=== PATIENT | male | born 1935 | race Caucasian/White ===

== ENCOUNTER 2024-05-30 17:42 | Emergency (ER) | payer MEDICARE, SELFPAY ==
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
[2024-05-30 17:45] VITALS: BP 139/69; PULSE 66; RESP 12; TEMP 36.5; O2SAT 98
--- NOTE | 2024-05-30 19:08 | ED_ITS ---
HPI - Fall General Chief Complaint: Fall Stated Complaint: fall from bed, head injury Time Seen by Provider: 05/30/24 18:16 Source: patient and EMS Mode of arrival: EMS Limitations: no limitations History of Present Illness HPI Narrative: This is an 88-year-old male, with history of dementia, brought in by EMS from [facility] after a [facility]. The patient states he accidentally rolled out of bed, landing on the ground and striking his head. He does not take blood thinners. He denies loss of consciousness, weakness/numbness, change /loss of vision or hearing and has no significant pain. He has no other complaints at this time. Related Data Allergies Allergy/AdvReac Type Severity Reaction Status Date / Time cephalexin Allergy Unknown Verified 05/30/24 17:54 Review of Systems Review of Systems: All systems reviewed & are unremarkable except as noted in HPI and below PMFSH Past Medical History Medical History Dementia Surgical History Surgical History No significant past surgical history Social History Social History Smoking status: Never smoker Alcohol intake: never Substance use: never Exam Narrative: GENERAL: Well-developed, well-nourished, and in no acute distress. HEAD: Normocephalic, atraumatic. EYES: PERRLA and EOMI. ENT: Nares clear, no rhinorrhea or epistaxis. Mucous membranes moist. Oropharynx without tonsillar hypertrophy exudate or other lesions. NECK: Supple. No midline spine tenderness to palpation, no step-off or crepitus CHEST: Clear to auscultation. No respiratory distress. No wheezes rales or rhonchi HEART: Regular rate and rhythm. No murmur heard. Normal peripheral pulses. ABDOMEN: Soft, nontender, nondistended, normal active bowel sounds. BACk: No midline spine tenderness to palpation, no step-off or crepitus EXTREMITIES: Normal range of motion. No edema. SKIN: Warm, dry, no rash. NEURO: Alert and oriented x1. Strength 5/5 in all extremities, sensation intact bilaterally, no noted ataxia, cranial nerves 2-12 intact PSYCH: Normal mood and affect. Course Course Emergency Course: 19:05 - CT head negative for skull fracture or intracranial hemorrhage. CT cervical spine negative for fracture or dislocation. Will discharge with recommendation for primary care follow-up. I discussed the findings and recommendations with the patient and his prison staff. Discussed return and emergency precautions including signs/symptoms of intracranial hemorrhage and focal neural deficit. The patient and staff voiced understanding and agreement with the plan. All questions answered to their satisfaction. Vital Signs Vital signs: Vital Signs Temperature 97.7 F 05/30/24 17:45 Pulse Rate 66 05/30/24 17:45 Respiratory Rate 12 05/30/24 17:45 Blood Pressure 139/69 05/30/24 17:45 Pulse Oximetry 98 05/30/24 17:45 Oxygen Delivery Room Air 05/30/24 17:45 Temperature 97.7 F 05/30/24 17:45 Pulse Rate 69 05/30/24 19:27 Respiratory Rate 16 05/30/24 19:27 Blood Pressure 139/69 05/30/24 17:45 Pulse Oximetry 98 05/30/24 19:27 Oxygen Delivery Room Air 05/30/24 17:45 MDM - Fall MDM Narrative Medical decision making narrative: plan: imaging, reassess Differential Diagnosis Differential diagnosis: Likely concussion without loss of consciousness and other ( skull fracture, intracranial hemorrhage, cervical spine fracture, other) Discharge Plan Discharge Clinical Impression: Concussion Qualifiers: Encounter type: initial encounter Loss of consciousness presence/duration: without LOC Qualified Code(s): S06.0X0A - Concussion without loss of consciousness, initial encounter CHI (closed head injury) Qualifiers: Encounter type: initial encounter Qualified Code(s): S09.90XA - Unspecified injury of head, initial encounter Patient Disposition: [facility]As[facility] Living Condition: Stable Instructions: Antibiotic Form, Concussion (ED) Additional Instructions: You were seen in the emergency department. A CT scan of the head and neck were not concerning for bleeding in the brain, skull fracture or spine fracture. If you develop persistent vomiting, weakness/numbness, change/loss of vision/hearing, or if you have other emergent concerns for life, limb, or eyesight, return to the emergency department. Patient Language: Yakut Follow-up/Referrals: UNKNOWN,DOCTOR [Primary Care Provider] - Time of Disposition: 19:09
[2024-05-30 19:27] VITALS: PULSE 69; RESP 16; O2SAT 98
== END 2024-05-30 20:00 ==
PROVIDERS: Emergency Provider Preventive Medicine Aerospace Medicine
DX: S06.0X0A Concussion without loss of consciousness, initial encounter (principal); F03.90 Unspecified dementia, unspecified severity, without behavioral disturbance, psychotic disturbance, mood disturbance, and anxiety; W06.XXXA Fall from bed, initial encounter
CPT/HCPCS: 70450; 72125; 99284

== ENCOUNTER 2024-08-06 07:23 | Emergency (ER) | payer MEDICARE, SELFPAY ==
[2024-08-06] VITALS (9 sets, daily range): BP systolic 128–167; BP diastolic 70–104; PULSE 55–65; RESP 16–18; TEMP 36.4–37.1; O2SAT 89–98
--- NOTE | ~2024-08-06 | XR_ITS ---
XR shoulder LT min 2V 08/06/2024 09:00 Indication: Left shoulder pain after fall Procedure: 4 views left shoulder Comparison: No prior studies for comparison. 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 No fracture or traumatic malalignment. Ther e is chondrocalcinosis. Impression: 1: No acute fracture. Reviewed, dictated and finalized at location A. Impression: 1: No acute fracture.
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
--- NOTE | ~2024-08-06 | CT_ITS ---
EXAMINATION: CT chest abdomen pelvis w con DATE: 08/06/2024 08:50 INDICATION: Fall with pain and bruising at the posterior left hemithorax. TECHNIQUE: Computed tomography (CT) of the chest, abdomen, and pelvis was performed with 100 mL Omnip aque-350 intravenous contrast. Automated exposure control and iterative reconstruction technique were employed. The dose-length product was 984.58 mGy-cm. COMPARISON: None FINDINGS: CHEST CT: There are fractures of the posterior left eighth-11th ribs with varying degrees of displacement. No p neumothorax. Trace bilateral posterior layering pleural effusions. Groundglass opacities and smooth s eptal line thickening with peripheral and dependent predominance consistent with mild pulmonary edema . Cardiomegaly. Thoracic aorta is normal in caliber with no dissection or acute traumatic aortic inju ry. Calcified right hilar and subcarinal lymph nodes consistent with old granulomatous disease. No pa thologically enlarged thoracic lymphadenopathy. Small sliding-type hiatal hernia. Mild to moderate th oracic spondylosis. ABDOMEN/PELVIS CT: Couple hepatic cysts the largest measuring 2 cm. There is intra and extra hepatic biliary ductal dila tion likely related to prior cholecystectomy with surgical clips the gallbladder fossa. No evident ob structing masses or stones at the distal common bile duct. Duodenal diverticulum measuring 2.7 cm pos terior to the junction of the second and third portions of the duodenum. Spleen, pancreas and bilater al adrenal glands are normal. Large bilateral renal cysts measuring up to 8.3 cm on the right and 5.0 cm on the left. There are few scattered clonic diverticula without adjacent from trace stranding to suggest diverticulitis. The normal appendix and a relatively long segment of ileum extends into a lar ge right inguinal hernia which extends to the base of the scrotum. No bowel obstruction. Multiple bra chytherapy seeds of the prostate. Bladder is normal. No free intraperitoneal gas or fluid. No patholo gically enlarged abdominal or pelvic lymphadenopathy. Mild lower lumbar levocurvature with moderate s pondylosis. Ankylosis anteriorly at the bilateral sacroiliac joints. No pelvic fractures. IMPRESSION: 1. Fractures of the posterior left 8th-11th ribs. No pneumothorax. 2. Likely congestive heart failure with cardiomegaly, mild pulmonary edema and trace bilateral pleura l effusions. 3. Large right inguinal hernia containing the normal appendix and long segment of nonobstructed dista l ileum. 4. Intra and extra hepatic biliary ductal dilation without evident obstructing stone or mass, likely related to prior cholecystectomy. If there is clinical concern for biliary obstruction could consider MRCP for further evaluation. Reviewed, dictated and finalized at location B. IMPRESSION: 1. Fractures of the posterior left 8th-11th ribs. No pneumothorax. 2. Likely congestive heart failure with cardiomegaly, mild pulmonary edema and trace bilateral pleural effusions. 3. Large right inguinal hernia containing the normal appendix and long segment of nonobstructed distal ileum. 4. Intra and extra hepatic biliary ductal dilation without evident obstructing stone or mass, likely related to prior cholecystectomy. If there is clinical co ncern for biliary obstruction could consider MRCP for further evaluation.
--- NOTE | ~2024-08-06 | XR_ITS ---
XR chest 1V 08/06/2024 09:00 Indication: Status post fall. Procedure: AP view of the chest Comparison: No prior studies for comparison. Findings: Patchy mixed interstitial and airspace disease bilaterally, right greater than left. Differ ential diagnosis includes edema and pneumonia. No significant effusion. No pneumothorax. There is ath erosclerosis. Cardiomegaly. Impression: 1: Mixed interstitial and airspace disease bilaterally which may reflect edema or pneumonia. Reviewed, dictated and finalized at location A. Impression: 1: Mixed interstitial and airspace disease bilaterally which may reflect edema or pneumonia.
--- NOTE | 2024-08-06 07:35 | PC.NURSE ---
Notified Daughter Rossy ( Emergency contact) of patient arrival to ER for fall. will update with any changes.
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
[2024-08-06] MEDS: HYDROcodone/acetaminophen (*CRX) 5-325 MG TABLET 1 TAB PO (07:58)
[2024-08-06 08:12] LABS: Basophils Percent Auto 0.5 % (0.2-1.2); Eosinophils Absolute Auto 0.1 K/mm3 (0-0.3); Eosinophils Percent Auto 1.5 % (0-4.4); Hematocrit 33.6 % (42.0-52.0); Hemoglobin 11.2 g/dL (14.0-18.0); Immature Granulocyte Absolute 0.07 K/mm3 (0.00-0.031); Immature Granulocyte Percent A 1.3 % (0-0.5); Lymphocytes Absolute Auto 0.99 K/mm3 (0.9-3.2); Mean Corpuscular HGB Conc 33.3 g/dl (32-36); Mean Corpuscular Hemoglobin 35.9 pg (26-34); Mean Corpuscular Volume 107.7 fl (80-100); Mean Platelet Volume 9.8 fl (7.4-10.4); Monocytes Absolute Auto 0.5 K/mm3 (0.1-0.6); Monocytes Percent Auto 8.4 % (2.6-8.5); Neutrophils Absolute Auto 3.9 K/mm3 (1.3-6.7); Neutrophils Percent Auto 70.3 % (45.5-73.1); Platelet Count Result 152 k/mm3 (150-375); Red Blood Count 3.12 M/mm3 (4.6-6.20); Red Cell Distribution Width 13.6 % (11.5-14.5); White Blood Count 5.5 K/mm3 (4.5-10.0)
[2024-08-06 08:21] LABS: Alanine Aminotransferase 21 U/L (6-50); Albumin Level 3.8 g/dL (3.5-5.1); Alkaline Phosphatase 91 U/L (38-126); Anion Gap 7 mmol/L (4-12); Aspartate Amino Transferase 28 U/L (17-59); Bilirubin,Total 0.6 mg/dL (0.2-1.3); Blood Urea Nitrogen 29 mg/dL (9-20); Calcium 9.3 mg/dL (8.4-10.2); Carbon Dioxide 30 mmol/L (22-30); Chloride 102 mmol/L (98-107); Estimated Glomerular Filt Rate > 60; Glucose 128 mg/dL (65-110); Potassium 4.1 mmol/L (3.4-5.0); Sodium 139 mmol/L (137-145)
[2024-08-06 08:25] LABS: Add Urine Microscopic? YES; Appearance Urine Clear (Clear); Bacteria Urine None Seen /hpf; Bilirubin Urine Negative (Negative); Blood Urine Trace (Negative); Color Urine Yellow (Yellow); Glucose Urine UA Negative (Negative); Ketones Urine Negative (Negative); Leukocyte Esterase Ur 1+ LEU/UL (Negative); Nitrate Urine Negative (Negative); Non Pathogenic Casts 0-2; Protein Urine Negative (Negative); Specific Grav Ur 1.018 (1.001-1.035); Squamous Epithelial Cell Urine None Seen /hpf (Few); Urobilinogen Urine 0.2 mg/dL (<2.0); pH Urine 6.5 (5.0-9.0)
[2024-08-06 08:36] LABS: Macrocytosis 1+ (NORMAL); Platelet Estimate Adequate (Adequate); Schistocytes None Seen
[2024-08-06 08:48] LABS: Influenza A QL RT-PCR Negative (Negative); Influenza B QL RT-PCR Negative (Negative); RSV RNA, RT-PCR Negative (Negative); SARS-CoV-2 RNA PCR Negative (Negative)
[2024-08-06] MEDS: KETOROLAC 15 MG/ML VIAL (*BKC) IV PUSH (10:14)
[2024-08-06] MEDS: LIDOCAINE 5% PATCH 1 PATCH TRANSDERM (10:14)
--- NOTE | 2024-08-06 11:00 | PC.NURSE ---
Spoke with Elsie Kesslertone for report
== END 2024-08-06 10:40 | disposition short-term general hospital (02) ==
PROVIDERS: Emergency Provider Emergency Medicine
DX: S22.42XA Multiple fractures of ribs, left side, initial encounter for closed fracture (principal); Z20.822 Contact with and (suspected) exposure to COVID-19; R82.998 Other abnormal findings in urine; F03.90 Unspecified dementia, unspecified severity, without behavioral disturbance, psychotic disturbance, mood disturbance, and anxiety; K40.90 Unilateral inguinal hernia, without obstruction or gangrene, not specified as recurrent; Z90.49 Acquired absence of other specified parts of digestive tract; R91.8 Other nonspecific abnormal finding of lung field; M47.812 Spondylosis without myelopathy or radiculopathy, cervical region; I51.7 Cardiomegaly; J81.1 Chronic pulmonary edema; W18.30XA Fall on same level, unspecified, initial encounter
CPT/HCPCS: 36415; 70450; 71045; 71260; 72125; 72170; 73030; 74177; 80053; 81001; 85025; 87086; 87637; 96374; 99285; A9270; J1885; Q9967